=== PATIENT | female | born 1955 | race Caucasian/White ===

== ENCOUNTER 2023-06-10 07:00 | Day surgery (SDC) | payer OTHER, SELFPAY ==
--- NOTE | 2023-06-05 11:38 | HPS.HSE ---
Family Physician
-
Family Physician: INTERVIEWE UNKNOWN - PT NOT
Chief Complaint
-
Chronic atrial fibrillation. Atypical atrial flutter.
History of Present Illness
The patient is a 68 year old female presenting today for chronic atrial fibrillation and atypical atrial flutter. The patient is accompanied by her son, Georgette, due to her primary language being [place]. Should this language not be available per
station repairer services, her son states the Namibian or Tunisian would be preferred. The patient notes persistent dyspnea on exertion and intermittent palpitations over the last 2 years which are likely in part due to her atrial arrhythmias. She
previously underwent a failed cardioversion in 2019. She is on current pharmacological therapy with Diltiazem and Metoprolol Tartrate. She is compliant with Eliquis for oral anticoagulation. She notes that her current symptoms greatly interfere with
her activities of daily living and overall impact her quality of life. She is interested in pursuing pulmonary vein isolation and atrial flutter ablation for further arrhythmia management. Of note, the patient did undergo a medial sternotomy and
atrial septal repair in 1992 in [facility]. Given the paucity of medical records from her remote atrial septal defect repair, she will undergo a pre-procedural transesophageal echocardiogram first to comprehensively assess her anatomy. She denies any
current complaints today such as chest pain, shortness of breath at rest, palpitations, nausea, vomiting, diarrhea, lightheadedness, dizziness, sore throat, or fever.
Medical History
Past Medical History
Past Medical History: Reports Other
Additional Past Medical History:
1. Chronic atrial fibrillation and atypical atrial flutter, status post cardioversion 2018; pharmacological therapy with Diltiazem and Metoprolol Succinate, oral anticoagulation with Eliquis.
2. Hypertension.
3. Hyperlipidemia.
4. Coronary artery disease, status post PCI with stent 2018.
5. Atrial septal defect, status post medial sternotomy and atrial septal defect repair 1992.
6. Congestive heart failure, preserved ejection fraction.
7. Pericardial effusion without evidence of hemodynamic compromise on echocardiogram 11/2022.
8. Venous varicosities.
9. Osteoarthritis.
10. Mild leukocytosis and elevated blood glucose, likely secondary to recent corticosteroids.
11. Obesity, BMI 31.7.
Past Surgical History: Reports Other
Additional Past Surgical History:
1. PCI with stent and cardioversion.
2. Medial sternotomy and atrial septal defect repair.
Social History
Tobacco: Non-smoker
Alcohol: None
Living: Other (She lives with her son in his 3 story home. )
Family History
Family History: Not pertinent
Allergies / Home Medications
Allergy/Medication List:
Home medications:
1. Apixaban 5 mg p.o. twice a day.
2. Diltiazem 240 mg p.o. daily.
3. Furosemide 20 mg p.o. daily.
4. Lisinopril 10 mg p.o. daily.
5. Metoprolol Tartrate 25 mg p.o. twice a day.
6. Rosuvastatin 40 mg p.o. daily.
7. Aldactone 25 mg p.o. daily.
Allergies: No known allergies.
Review of Systems
-
A 12 point ROS was completed and negative except as noted: Yes
Physical Exam
Vital Signs
Blood pressure 115/73. Heart rate 77. Respirations 18. Pulse ox 98% on room air.
Height 5 feet, 3 inches. Weight 81.3 kg. BMI 31.7.
Physical Exam
General: Well Developed, Well Nourished and No Apparent Distress
HEENT: NormoCephalic, Moist mucous membranes, Atraumatic and PERRLA
Respiratory: Clear
Cardiac: Irregular Rhythm
GI: Soft, Non Tender and Non Distended
Musculoskeletal: Normal Gait & Station
Skin: Warm and Dry
Neuro: AO x 3 and Nonfocal/grossly intact
Laboratory Results
-
DIAGNOSTIC STUDIES as of 06/05/2023: White blood cell count 13.1. Hemoglobin 12.3. Platelet count 323,000. PT 13.9. INR 1.07. Sodium 136. Potassium 4.4. BUN 14. Creatinine 0.7. Glucose 227. Calcium 9.6. Magnesium 2.1. AST 19. ALT 17. Albumin 4.4.
Type and screen O positive.
EKG 06/05/2023: Atrial flutter with variable AV block and premature ventricular or aberrantly conducted complexes. Lateral infarct, age undetermined.
Chest CT 06/05/2023: Normal, conventional pulmonary venous anatomy is demonstrated on the right. No evidence of left atrial filling defect/thrombus identified.
Echocardiogram 12/03/2022: The estimated ejection fraction is 60-65%. Small cell growth. Showed pericardial effusion, without evidence of hemodynamic compromise. Mild biatrial enlargement. Normal LV and RV size and function. Mild to moderate mitral
regurgitation with eccentric posteriorly directed jet. History of ASD repair in the past. Based on the color Doppler there is no evidence of interatrial communication.
Impression/Plan
-
IMPRESSION/PLAN:
1. Chronic atrial fibrillation and atypical atrial flutter: The patient would like to pursue pulmonary vein isolation and an atrial flutter ablation for further arrhythmia management. Prior to getting this done, she will undergo a transesophageal
echocardiogram with Dr. Moshe Kauffman on 06/10/2023. The benefits and risks of the procedure have been explained to the patient. The patient understands these risks and wishes to proceed.
2. New-onset cough: The patient's son reported a recent onset of a non-productive cough for this patient. Per her son, her cough very well could be allergy related. She denied any fever and any other associated symptoms. No coughing was noted per
this practitioner during the patient's pre-operative evaluation. She was advised to monitor her symptoms at home prior to her procedure. She was also advised to COVID test herself and call her surgeon's office should she test positive. Adequate
hydration, rest, and cough suppressants, such as cough drops, were suggested. Of note, her chest CT demonstrated no lung abnormalities.
== END 2023-06-10 09:45 | disposition home or self-care (01) ==
LOC: CATH 07:00
PROVIDERS: ATTENDING PHYSICIAN Internal Medicine Cardiovascular Disease
DX: I48.20 Chronic atrial fibrillation, unspecified (principal); I48.4 Atypical atrial flutter; I08.1 Rheumatic disorders of both mitral and tricuspid valves; R06.09 Other forms of dyspnea; I11.0 Hypertensive heart disease with heart failure; I50.9 Heart failure, unspecified; E78.5 Hyperlipidemia, unspecified; I25.10 Atherosclerotic heart disease of native coronary artery without angina pectoris; Z95.5 Presence of coronary angioplasty implant and graft; E66.9 Obesity, unspecified; Z68.31 Body mass index [BMI] 31.0-31.9, adult; Z79.01 Long term (current) use of anticoagulants
CPT/HCPCS: 93312; 93320; 93325

== ENCOUNTER 2023-06-12 05:59 | Day surgery (SDC) | payer OTHER, SELFPAY ==
[2023-06-05 12:46] VITALS: BMI 31.8
[2023-06-05 13:24] LABS: % Basophils 0.2 % (0-2); % Immature Granulocytes 0.6 % (0-0.5); % Lymphocytes 13.3 % (20.5-51.1); % Monocytes 6.3 % (1.7-9.3); % Neutrophils 79.6 % (42.2-75.2); Absolute Immature Granulocytes 0.1 10^3/uL (0-0.05); Absolute Lymphocytes 1.8 10^3/uL (1.2-3.4); Absolute Monocytes 0.8 10^3/uL (0.1-0.6); Absolute Neutrophils 10.6 10^3/uL (1.4-6.5); Hematocrit 37.2 % (37.0-47.0); Hemoglobin 12.3 g/dL (12.0-16.0); Mean Corp Hgb Conc. 33.1 g/dL (33.0-37.0); Mean Corpuscular Hgb 29.9 pg (27.0-31.0); Mean Corpuscular Volume 90.5 fL (81.0-99.0); Nucleated Red Blood Cells % 0 %; Platelet Count 323 10^3/uL (130-400); Red Blood Cell Count 4.11 10^6/uL (4.20-5.40); Red Cell Dist. Width 12.7 % (11.5-14.5); White Blood Cell Count 13.3 10^3/uL (4.8-10.8)
[2023-06-05 13:35] LABS: ALT (SGPT) 17 U/L (0-35); AST (SGOT) 19 U/L (14-36); Albumin 4.4 g/dl (3.5-5.0); Alkaline Phosphatase 113 U/L (38-126); Blood Urea Nitrogen 14 mg/dl (7-17); Calcium 9.6 mg/dl (8.4-10.2); Carbon Dioxide 25 mmol/L (22-30); Chloride 101 mmol/L (98-107); Estimated Creatinine Clearance 78 ml/min; Glucose 227 mg/dl (70-99); Magnesium 2.1 mg/dl (1.6-2.3); Potassium 4.4 mmol/L (3.5-5.1); Sodium 136 mmol/L (135-145); Total Bilirubin 0.5 mg/dl (0.2-1.3); Total Protein 7.3 g/dl (6.3-8.2); eGFR > 60.00
[2023-06-05 13:43] LABS: INR 1.07; PT 13.9 Sec (11.4-14.6)
[2023-06-05 13:44] LABS: APTT 28.1 Sec (23.4-35.0)
--- NOTE | 2023-06-06 07:26 | HPS.HSE ---
Family Physician
-
Family Physician: Gilles Lock
Chief Complaint
-
Chronic atrial fibrillation. Atypical atrial flutter.
History of Present Illness
The patient is a 68 year old female presenting today for chronic atrial fibrillation and atypical atrial flutter. The patient is accompanied by her son, Georgette, due to her primary language being [place]. Should this language not be available per
painter hand services, her son states the [place] or [place]divian would be preferred. The patient notes persistent dyspnea on exertion and intermittent palpitations over the last 2 years which are likely in part due to her atrial arrhythmias. She
previously underwent a failed cardioversion in 2019. She is on current pharmacological therapy with Diltiazem and Metoprolol Tartrate. She is compliant with Eliquis for oral anticoagulation. She notes that her current symptoms greatly interfere with
her activities of daily living and overall impact her quality of life. She is interested in pursuing pulmonary vein isolation and atrial flutter ablation for further arrhythmia management. She denies any current complaints today such as chest pain,
shortness of breath at rest, palpitations, nausea, vomiting, diarrhea, lightheadedness, dizziness, sore throat, or fever.
Medical History
Past Medical History
Past Medical History: Reports Other
Additional Past Medical History:
1. Chronic atrial fibrillation and atypical atrial flutter, status post cardioversion 2018; pharmacological therapy with Diltiazem and Metoprolol Succinate, oral anticoagulation with Eliquis.
2. Hypertension.
3. Hyperlipidemia.
4. Coronary artery disease, status post PCI with stent 2018.
5. Atrial septal defect, status post medial sternotomy and atrial septal defect repair 1992.
6. Congestive heart failure, preserved ejection fraction.
7. Pericardial effusion without evidence of hemodynamic compromise on echocardiogram 11/2022.
8. Venous varicosities.
9. Osteoarthritis.
10. Mild leukocytosis and elevated blood glucose, likely secondary to recent corticosteroids.
11. Obesity, BMI 31.7.
Past Surgical History: Reports Other
Additional Past Surgical History:
1. PCI with stent and cardioversion.
2. Medial sternotomy and atrial septal defect repair.
Social History
Tobacco: Non-smoker
Alcohol: None
Living: Other (She lives with her son in his 3 story home. )
Family History
Family History: Not pertinent
Allergies / Home Medications
Allergy/Medication List:
Home medications:
1. Apixaban 5 mg p.o. twice a day.
2. Diltiazem 240 mg p.o. daily.
3. Furosemide 20 mg p.o. daily.
4. Lisinopril 10 mg p.o. daily.
5. Metoprolol Tartrate 25 mg p.o. twice a day.
6. Rosuvastatin 40 mg p.o. daily.
7. Aldactone 25 mg p.o. daily.
Allergies: No known allergies.
Review of Systems
-
A 12 point ROS was completed and negative except as noted: Yes
Physical Exam
Vital Signs
Blood pressure 115/73. Heart rate 77. Respirations 18. Pulse ox 98% on room air.
Height 5 feet, 3 inches. Weight 81.3 kg. BMI 31.7.
Physical Exam
General: Well Developed, Well Nourished and No Apparent Distress
HEENT: NormoCephalic, Moist mucous membranes, Atraumatic and PERRLA
Respiratory: Clear
Cardiac: Irregular Rhythm
GI: Soft, Non Tender, Non Distended and Other (Obese. )
Musculoskeletal: Normal Gait & Station
Skin: Warm and Dry
Neuro: AO x 3 and Nonfocal/grossly intact
Laboratory Results
-
06/05/23 12:33
06/05/23 12:33
Laboratory Results
PT 13.9 Sec (11.4-14.6) 06/05/23 12:33
INR 1.07 06/05/23 12:33
APTT 28.1 Sec (23.4-35.0) 06/05/23 12:33
Total Bilirubin 0.5 mg/dl (0.2-1.3) 06/05/23 12:33
AST 19 U/L (14-36) 06/05/23 12:33
ALT 17 U/L (0-35) 06/05/23 12:33
Alkaline Phosphatase 113 U/L (38-126) 06/05/23 12:33
EKG 06/05/2023: Atrial flutter with variable AV block and premature ventricular or aberrantly conducted complexes. Lateral infarct, age undetermined.
Chest CT 06/05/2023: Normal, conventional pulmonary venous anatomy is demonstrated on the right. No evidence of left atrial filling defect/thrombus identified.
Echocardiogram 12/03/2022: The estimated ejection fraction is 60-65%. Small cell growth. Showed pericardial effusion, without evidence of hemodynamic compromise. Mild biatrial enlargement. Normal LV and RV size and function. Mild to moderate mitral
regurgitation with eccentric posteriorly directed jet. History of ASD repair in the past. Based on the color Doppler there is no evidence of interatrial communication.
Impression/Plan
-
IMPRESSION/PLAN:
1. Chronic atrial fibrillation and atypical atrial flutter: The patient would like to pursue pulmonary vein isolation and an atrial flutter ablation for further arrhythmia management. She is scheduled for this procedure on 06/12/[address] Garcia
Shreyas. Prior to getting this done, she will undergo a transesophageal echocardiogram on 06/10/2023 to assess her anatomy. The benefits and risks of both procedures have been explained to the patient. The patient understands these risks and wishes
to proceed.
2. New-onset cough: The patient's son reported a recent onset of a non-productive cough for this patient. Per her son, her cough very well could be allergy related. She denied any fever and any other associated symptoms. No coughing was noted per
this practitioner during the patient's pre-operative evaluation. She was advised to monitor her symptoms at home prior to her procedure. She was also advised to COVID test herself and call her surgeon's office should she test positive. Adequate
hydration, rest, and cough suppressants, such as cough drops, were suggested. Of note, her chest CT demonstrated no lung abnormalities.
[2023-06-12] VITALS (10 sets, daily range): BP systolic 122–149; BP diastolic 58–95; BMI 31.7
[2023-06-12 08:58] LABS: ACT-LR - POC 244 Seconds (116-155)
[2023-06-12 09:22] LABS: ACT-LR - POC 292 Seconds (116-155)
[2023-06-12 09:40] LABS: ACT-LR - POC 313 Seconds (116-155)
[2023-06-12 10:00] LABS: ACT-LR - POC 303 Seconds (116-155)
--- NOTE | 2023-06-12 10:50 | ITS.CL.ABL ---
[employer] - Ablation
Ablation
Procedure Report:
ELECTROPHYSIOLOGY ABLATION STUDY
DATE:: June 12, 2023 REFERRING: Dr. Minh Davenport
INDICATION: Persistent supraventricular tachycardia in the form of atypical atrial flutter
HISTORY: See H and P. As above
ANTIARRHYTHMIC DRUG: Toprol and diltiazem
PRE-PROCEDURE DOTTIE: No atrial thrombus
PRESENTING RHYTHM: Micra reentry from the superior anterior left atrium above the prior ASD patch approximately 1 cm anteroseptal to the antrum of the right superior pulmonary vein involving this region and extension slightly towards the center of
the left atrial roof. Cycle length 250 to 60 ms.
'TIME-OUT': called and confirmed.
SEDATION/ANESTHESIA: provided via the anesthesia department using general anesthesia (LMA).
INTRAVENOUS/ARTERIAL ACCESS:
Right femoral venous - 8Fr
Left femoral venous - 8 Fr, 6 Fr
Ultrasound guidance for bilateral femoral vein access was utilized by me to obtain access with demonstration of normal anatomy
CHADS-VASC Score:
HAS-Bled Score
PROCEDURE:
1. A decapolar CS catheter was placed within the CS for mapping and pacing. This was also used as the reference catheter for the 3-D map. The clinical atrial flutter was Microreentry from the left atrium in the anteroseptal left atrium just
outside the right superior pulmonary vein above the prior surgical patch. The entire right atrium was activating passively with 90% of the cycle length in the right atrium with markedly long post pacing interval from the entire right atrium. The
tachycardia appeared to be breaking through the posteroseptal right atrium from the left atrium. Transseptal puncture was somewhat difficult given the prior surgical ASD closure and utilized a steerable 10 Panamanian sheath first then upgraded to the
pulse select sheath. Multipolar mapping of the left atrium demonstrated Microreentry with PPI equal to tachycardia cycle length in the anteroseptal left atrium just outside the right superior pulmonary vein and a focal area. This focal area
extended from the anteroseptal left atrium towards the center of the left atrial roof with the boundary of the circuit was approximately 0.5 to 1 cm. Although we do open not have a prior surgical report the right superior pulmonary vein was
isolated at baseline and there was only small areas of connection at the right inferior pulmonary vein and in the left common ostium. We performed PFA for pulmonary vein isolation and left atrial posterior wall isolation and with PFA delivered to
the anteroseptal left atrium outside the right superior pulm vein all the way back to the transseptal puncture the tachycardia then changed from the initial cycle length of 250 ms to 270 ms and CS activation changed from eccentric to concentric.
This second tachycardia went between 270 ms and 230 ms with the 230 ms tachycardia which we will refer to his tachycardia 3 entraining from the CTI and proximal coronary sinus. Tachycardia 2 at 270 ms which was transition from the clinical
tachycardia was not able to be entrained from either atria with PPI equal to tachycardia cycle length. The patient predominantly was in the second tachycardia to 70 ms, and as such we then cardioverted the patient to sinus rhythm and perform CTI
flutter ablation in sinus rhythm with bidirectional block at 140 ms and this was performed with a 4 mm tactic cath. We also delivered lesions on the right atrial side of the interatrial septum across from the area of clinical tachycardia at 30 W.
The patient had intermittent sinus bradycardia and competing junctional rhythm and the patient was noninducible for further tachyarrhythmia.
2. The intracardiac ultrasound catheter was positioned in the RA to identify the FO for targeting of transseptal puncture, assist in identification of the pulmonary vein ostia, monitoring pre and post ablation pulmonary vein flow velocities,
monitoring for 'bubble' formation during RF application as a sign of thermal injury, and to monitor for pericardial effusion during mapping and ablation procedure. Left atrial size, LV ejection fraction, and pulmonary vein flows were monitored
pre and post ablation procedure. The other valves were inspected and found to be free of significant regurgitation or stenosis.
3. Half of the calculated heparin bolus was administered prior to the first transeptal puncture. Transseptal puncture was performed to diagnose RA and LA pressure so that safety of LA mapping and ablation could be further assessed, and to access
the left atrium and pulmonary veins for mapping and ablation. This entailed advancing an 8 Fr SL-1 sheath with dilator into the superior vena cava and withdrawing both (monitoring intracardiac ultrasound, fluoroscopy and tip pressure) with the tip
oriented toward the atrial septum. The fossa ovalis was engaged (indicated by sudden displacement of the sheath tip as well as tenting of the fossa seen on intracardiac ultrasound). Left atrial access required a pass with the Brockenbrough needle
extended. Left atrial catheter position was confirmed by pressure monitoring (RA mean pressure for mm Hg and LA mean presure 8 mm Hg), LA saturation (99%), as well as fluoroscopy. The sheath was advanced over the dilator and positioned in the
left atrium. This procedure was repeated for the Agilis sheath. The remainder of the calculated heparin bolus was administered and heparin was
infused to maintain ACT at 300 -350 seconds throughout the case.
4. RA pacing was performed via the proximal decapolar poles and LA pacing was performed via the distal decapolar poles.
5. A quadrapolar catheter was first positioned at the His position for His Bundle recording which was tagged via the 3-D Navex sytem, and then passed to the RVA for RV pacing and recording.
6. The ablation catheter was positioned through one of the transeptal seaths and a 20 pole ring mapping catheter was positioned through the second seath into the LA and then the ostia of the LIPV, LSPV, RSPV and the RIPV.
7. Next, a 3-D map was created using Navex. A 3-D reconstructed CT image was compared to the 3-D Navex map to assist in anatomic interpretation, mapping and ablation. The CT image and the NavX image were fused.
8. All 4 pulmonary veins were isolated with pulsed field ablation as above, the left atrial posterior wall was isolated with pulsed field ablation with electrical silence and the left atrial posterior wall. A line from the right superior pulmonary
vein down along the interatrial septum towards the transseptal puncture was performed PFA transitioning the clinical tachycardia to tachycardia 2 and 3. CTI flutter ablation was performed with RF and additional RF lesions were placed across from
the clinical tachycardia site from the right atrial side to hit both sides of the septum at the site of clinical tachycardia which was macro reentry about the anterior superior interatrial septum.
9. As above the patient had sinus bradycardia and competing junctional rhythm at baseline with reasonable conduction down to 520 ms and a normal HV interval.
TOTAL FLOURO TIME: 27.6 minutes
TOTAL RF DURATION: 6 minutes
REVERSAL OF HEPARIN: 40 mg of protamine, slow IV administration
COMPLICATIONS:
None
Intracardiac US shows no pericardial effusion post ablation.
SUMMARY:
Complex left atrial mapping and ablation.
Clinical tachycardia was Micra reentry in the anteroseptal region of the left atrium above and slightly posterior to the prior surgical patch. This was ablated with PFA as well as the pulmonary veins were isolated, the left atrial posterior wall
was isolated, and CTI flutter ablation was performed.
RECOMMENDATIONS:
1. Admit to monitored bed.
2. Resume anticoagulation. [id number] stitch was applied
3. Discontinue Cardizem but will continue Toprol given her cardiomyopathy
4. Continue oral anticoagulation
Copy to: Dr. Minh Davenport
[2023-06-12] MEDS: TYLENOL 650 MG PO (14:10)
--- NOTE | 2023-06-12 15:29 | W.PN.UPDATE ---
Update Note
Progress Note Update
68 yo WF s/p PVI (same day). She feels good, no cp, sob, von diet, voiding, amb w/o dizziness, b/l groins c/d/i no HT, soft, EKG SR 1deg AVB. She will take Eliquis at 5pm at home. She will stop diltiazem and continue metprolol. Activity restrictions
reviewed. She will f/u Dr. Davenport in 2-4 weeks. She is for d/c home after 330pm.
SUMMARY:
Complex left atrial mapping and ablation.
Clinical tachycardia was Micra reentry in the anteroseptal region of the left atrium above and slightly posterior to the prior surgical patch. This was ablated with PFA as well as the pulmonary veins were isolated, the left atrial posterior wall
was isolated, and CTI flutter ablation was performed.
RECOMMENDATIONS:
1. Admit to monitored bed.
2. Resume anticoagulation. [id number] stitch was applied
3. Discontinue Cardizem but will continue Toprol given her cardiomyopathy
4. Continue oral anticoagulation
Copy to: Dr. Minh Davenport
== END 2023-06-12 15:26 | disposition home or self-care (01) ==
LOC: CATH 05:59
PROVIDERS: ATTENDING PHYSICIAN Internal Medicine Cardiovascular Disease; FAMILY PHYSICIAN Family Medicine; OTHER PHYSICIAN Internal Medicine Cardiovascular Disease
DX: I48.20 Chronic atrial fibrillation, unspecified (principal); I48.4 Atypical atrial flutter; R06.09 Other forms of dyspnea; Z79.899 Other long term (current) drug therapy; Z79.01 Long term (current) use of anticoagulants; I11.0 Hypertensive heart disease with heart failure; Z87.74 Personal history of (corrected) congenital malformations of heart and circulatory system; Z95.5 Presence of coronary angioplasty implant and graft; I25.10 Atherosclerotic heart disease of native coronary artery without angina pectoris; E78.5 Hyperlipidemia, unspecified; E66.9 Obesity, unspecified; Z68.31 Body mass index [BMI] 31.0-31.9, adult; M19.90 Unspecified osteoarthritis, unspecified site; I31.39 Other pericardial effusion (noninflammatory); I83.90 Asymptomatic varicose veins of unspecified lower extremity; D72.829 Elevated white blood cell count, unspecified; R73.9 Hyperglycemia, unspecified; I47.10 Supraventricular tachycardia, unspecified; I50.9 Heart failure, unspecified
CPT/HCPCS: C1732; C1894; C1769; C1730; C1766; C2630; C1892; C1759; 36415; 75572; 76937; 80053; 83735; 85025; 85347; 85610; 85730; 86850; 86900; 86901; 93005; 93655; 93656; 93657; Q9967

== ENCOUNTER 2024-01-27 15:20 | Inpatient (IN) | payer OTHER, SELFPAY ==
[2024-01-27] VITALS (10 sets, daily range): BP systolic 103–138; BP diastolic 60–91; BMI 32.8
[2024-01-27 12:05] LABS: % Basophils 1.1 % (0-2); % Eosinophils 2.9 % (0-6); % Immature Granulocytes 0.4 % (0-0.5); % Lymphocytes 32.3 % (20.5-51.1); % Monocytes 10.3 % (1.7-9.3); Absolute Basophils 0.1 10^3/uL (0-0.2); Absolute Eosinophils 0.2 10^3/uL (0-0.7); Absolute Lymphocytes 2.4 10^3/uL (1.2-3.4); Absolute Monocytes 0.8 10^3/uL (0.1-0.6); Absolute Neutrophils 3.9 10^3/uL (1.4-6.5); Hematocrit 39.4 % (37.0-47.0); Mean Corp Hgb Conc. 30.5 g/dL (33.0-37.0); Mean Corpuscular Hgb 28.4 pg (27.0-31.0); Mean Corpuscular Volume 93.1 fL (81.0-99.0); Mean Platelet Volume 8.7 fL (7.4-10.4); Nucleated Red Blood Cells % 0 %; Platelet Count 369 10^3/uL (130-400); Red Blood Cell Count 4.23 10^6/uL (4.20-5.40); Red Cell Dist. Width 14.3 % (11.5-14.5); White Blood Cell Count 7.3 10^3/uL (4.8-10.8)
[2024-01-27 12:21] LABS: ALT (SGPT) 14 U/L (0-35); AST (SGOT) 23 U/L (14-36); Albumin 4.6 g/dl (3.5-5.0); Alkaline Phosphatase 68 U/L (38-126); Blood Urea Nitrogen 12 mg/dl (7-17); Calcium 9.7 mg/dl (8.4-10.2); Carbon Dioxide 23 mmol/L (22-30); Chloride 104 mmol/L (98-107); Glucose 132 mg/dl (70-99); Potassium 4.3 mmol/L (3.5-5.1); Sodium 140 mmol/L (135-145); Total Bilirubin 0.8 mg/dl (0.2-1.3); Total Protein 7.5 g/dl (6.3-8.2); eGFR > 60.00
[2024-01-27] MEDS: CARDIZEM 5 MG IV (12:30)
[2024-01-27] MEDS: CARDIZEM 125 IV ×2 (12:30→22:03)
[2024-01-27 12:31] LABS: NT-proBNP 973 pg/ml; Troponin I < 0.012 ng/ml
--- NOTE | 2024-01-27 14:09 | HPS.HSE ---
Family Physician
-
Family Physician: Gilles Lcok
Chief Complaint
-
feeling weak
elevated HR
History of Present Illness
68 year old with PMH for atrial septal defect, A-fib, coronary artery disease, CHF, pericardial effusion presented to us with palpitation, short of breath, hot flashes for past 7 to 10 days. Patient underwent right knee replacement 3 weeks ago,
since then she has been taking oxycodone every 12 hours for pain. She abruptly stopped taking oxycodone due to the unpleasant side effects of oxycodone. Since then she has been having poor appetite, not sleeping very well, hot flashes, chills and
nauseous all the time. Her metoprolol was increased to twice a day due to elevated heart rate 7 days ago, with no relief in his symptoms. Patient denied any headache, dizziness, syncopal episode. Patient denied any fever, chest pain. Patient
stated burning in her stomach. Denied vomiting or diarrhea. Patient denied dysuria hematuria.
Upon arrival patient was noted in a flutter. Initiated on Cardizem drip. Admitting for further management
Medical History
Past Medical History
Past Medical History: Reports Other
Additional Past Medical History:
Mild mitral regurgitation
Atrial septal defect
Chronic A-fib
Coronary artery disease
Aortic valve sclerosis
Past Surgical History: Reports Other
Additional Past Surgical History:
Open heart surgery
Cardiac stent
Cardioversion
Social History
Tobacco: Non-smoker
Alcohol: None
Drug: None
Living: With Family
Family History
Family History: Not pertinent
Allergies / Home Medications
Allergies reflects when Allergies were last updated in [employer].
Home Medications with original date entered in [employer]
Allergy/Medication List:
Allergies
Allergy/AdvReac Type Severity Reaction Status Date / Time
No Known Allergies Allergy Unverified 06/12/23 06:14
Home Medications
apixaban 5 mg tablet (Eliquis) 5 mg PO DAILY 05/30/23
furosemide 20 mg tablet 20 mg PO DAILY 05/30/23
lisinopril 10 mg tablet 10 mg PO DAILY 05/30/23
rosuvastatin 40 mg tablet 40 mg PO QPM 05/30/23
spironolactone 25 mg tablet (Aldactone) 25 mg PO DAILY 05/30/23
metoprolol tartrate 25 mg tablet 25 mg PO BID #0 tabs 06/12/23
acetaminophen 325 mg tablet 650 mg PO Q4HPRN PRN mild pain 01/27/24
dapagliflozin propanediol 10 mg tablet (Farxiga) 10 mg PO DAILY 01/27/24
diltiazem HCl 240 mg capsule,24 hr,extended release 240 mg PO DAILY 01/27/24
ferrous sulfate 325 mg (65 mg iron) tablet 325 mg PO DAILY 01/27/24
therapeutic multivitamin 1 tab PO DAILY 01/27/24
Review of Systems
-
Constitutional: Reports Fatigue and Chills
EENT: Reports No Symptoms
Respiratory: Reports No Symptoms
Cardiac: Reports Palpitations
Abdomen/GI: Reports Nausea
: Reports No Symptoms
Musculoskeletal: Reports No Symptoms
Skin: Reports No Symptoms
Neurological: Reports No Symptoms
Endocrine: Reports No Symptoms
Hematologic/Lymphatic: Reports No Symptoms
Psych: Reports No Symptoms
Physical Exam
Vital Signs
Vital Signs
Temp Pulse Resp BP Pulse Ox
98.1 F 86 24 113/74 97
01/27/24 11:39 01/27/24 13:15 01/27/24 13:15 01/27/24 12:00 01/27/24 13:15
Physical Exam
General: Well Developed, Well Nourished and No Apparent Distress
HEENT: NormoCephalic, Moist mucous membranes and Atraumatic
Respiratory: Clear
Cardiac: S1/S2 and Regular Rhythm; No Murmur or Rub
GI: Soft, Non Tender, Non Distended and Normal Bowel Sounds; No Organomegaly
Rectal: Deferred by Provider
Musculoskeletal: No Clubbing, No Cyanosis and No Edema
Skin: Rash and Other (right knee incision)
Neuro: AO x 3 and Nonfocal/grossly intact
Psych: Calm
Laboratory Results
-
01/27/24 11:57
01/27/24 11:57
Laboratory Results
Total Bilirubin 0.8 mg/dl (0.2-1.3) 01/27/24 11:57
AST 23 U/L (14-36) 01/27/24 11:57
ALT 14 U/L (0-35) 01/27/24 11:57
Alkaline Phosphatase 68 U/L (38-126) 01/27/24 11:57
Troponin I < 0.012 ng/ml 01/27/24 11:57
Data Reviewed
-
Lab Data: Labs Reviewed by me
Impression/Plan
-
# Rapid atrial flutter
-On Cardizem drip
-Cardiology consulted
-EKG with a flutter with 221 AV conduction, ST and T wave abnormality
-Status post cardioversion in 2019
-eliquis continued
-metoprolol continued
-NPO after MN for possible cardioversion tomorrow
# Coronary artery disease, status post PCI with stent 2018-N
#Atrial septal defect, status post medial sternotomy and atrial septal defect repair 1992
#Congestive heart failure, preserved ejection fraction.
# Pericardial effusion
-Lasix,spironolactone continued
-Farxiga continued
#iron def anemia
-ferrous sulfate continued
#essential htn
-lisinopril continued
#HLD
-statin
#recent right knee replacement
#DVT prophylaxis
-eliquis
#CODE status
-full code
--- NOTE | 2024-01-27 15:30 | W.PN.UPDATE ---
Update Note
Progress Note Update
This is an addendum to the H&P written by Bridgette Oshea on 01/27/2024. Patient seen and examined independently with RECEPTIONIST NURSE
68-year-old female past medical history of atrial fibrillation/flutter status post cardioversion 2018, CAD status post stenting 2019, atrial septal defect status post medial sternotomy and atrial septal defect repair 923, HFpEF,, iron deficiency
anemia, hypertension, hyperlipidemia, presenting for insomnia, chills, nausea and found to be in atrial fibrillation with RVR with heart rate up to 124. Symptoms started after she stopped taking oxycodone for her right knee surgery 3 weeks ago.
Labs unremarkable. Chest x-ray shows cardiomegaly.
Cardizem drip started. Cardiology consulted. N.p.o. past midnight for potential cardioversion tomorrow.
[2024-01-27 15:45] LABS: TSH Reflex To Free T4 2.91 uIU/ml (0.47-4.68)
--- NOTE | 2024-01-27 15:48 | CON.CAR ---
Addendum entered and electronically signed by Devendra Mathew MD 01/27/24 17:05:
I saw and examined the patient.
The Application Engineer's note was reviewed and I agree with the note.
Comment: Briefly, 60-year-old woman past medical history of atrial fibrillation/flutter with prior ablation who presents in atrial flutter with rapid ventricular response
There was consideration for direct-current cardioversion in the ER however she unfortunately has not been reliably anticoagulated over the last several weeks
For now continue Dilt drip for heart rate goal less than 110 bpm
Continue Eliquis for cardioembolic prophylaxis of A-fib, patient should be discharged on twice daily dosing, was previously taking once daily
Tentative plan for DOTTIE/direct-current cardioversion if she remains in rapid atrial flutter
Discussed with patient's son who is at bedside
Rest per Amanda Ochoa
Addendum entered and electronically signed by Amanda Ochoa PA-C 01/27/24 16:21:
denies recent bleeding issues related to knee replacement. hgb stable at 12.
Original Note:
Consultation
Consultation Request
Date/Time Consultation Performed: 01/27/24
Requesting Provider: Bridgette WATKINS
Performing Provider: Amanda Ochoa PA-C for Dr. Mathew
Reason for Consultation: aflutter
Medical History
-
Chief Complaint: aflutter
History of Present Illness:
Patient is a 68-year-old female with past medical history of CAD status post PCI in 2019 in [facility], further details unknown, history of atrial fibrillation status post PFA, PVI, and CTI flutter ablation 06/12/23, chronic anticoagulation with
Eliquis, atrial septal defect status post repair through open heart surgery and medial sternal sternotomy in 1992 in [facility], details unknown, hypertension, hyperlipidemia, status post R knee replacement 01/05/2024 at [facility], Dr. Vieyra
who was seen as an urgent visit by Dr. Davenport today due to palpitations and shortness of breath as well as recent insomnia over the last several days. She was noted to be in rapid a flutter by EKG and was referred to [facility]. Reportedly
patient did miss several doses of Eliquis for her knee replacement approximately 3 weeks ago, and also states she was advised by Dr. Davenport to decrease her Eliquis dosing from twice daily to once daily due to bruising of her upper extremities. She
and family at bedside are upset she cannot get a cardioversion in the ER and be discharged. Currently HRs in 110s on IV cardizem gtt @10. Also complained of some nausea, and states she has been taking oxycodone for pain, but recently stopped this.
She speaks some Slovak, however patient's son translates for her at times.
PMH:
Persistent atrial fibrillation
Status post PFA, PVI and CTI flutter ablation 06/12/2023
Chronic anticoagulation with Eliquis
history of R knee replacement 01/05/24 at [facility], Dr. Vieyra
History of CAD status post PCI in 2019 in [facility], further details unknown
atrial septal defect status post repair through open heart surgery and medial sternal sternotomy in 1992 in [facility], details unknown
HTN
HLD
Past Medical History
Past Medical History: Other (in HPI)
Social History
Tobacco: Non-Smoker
Alcohol: None
Living: With Family
Family History
Family History: Early CAD (brother) and CAD (mother)
Allergies / Home Medications
Allergy/AdvReac Type Severity Reaction Status Date / Time
No Known Allergies Allergy Unverified 06/12/23 06:14
�Medication �Instructions �Recorded �Confirmed �Type
apixaban 5 mg tablet (Eliquis) 5 mg PO DAILY 05/30/23 01/27/24 History
furosemide 20 mg tablet 20 mg PO DAILY 05/30/23 01/27/24 History
lisinopril 10 mg tablet 10 mg PO DAILY 05/30/23 01/27/24 History
rosuvastatin 40 mg tablet 40 mg PO QPM 05/30/23 01/27/24 History
spironolactone 25 mg tablet 25 mg PO DAILY 05/30/23 01/27/24 History
(Aldactone)
metoprolol tartrate 25 mg tablet 25 mg PO BID #0 tabs 06/12/23 01/27/24 Rx
acetaminophen 325 mg tablet 650 mg PO Q4HPRN PRN mild pain 01/27/24 01/27/24 History
dapagliflozin propanediol 10 mg 10 mg PO DAILY 01/27/24 01/27/24 History
tablet (Farxiga)
diltiazem HCl 240 mg capsule,24 240 mg PO DAILY 01/27/24 01/27/24 History
hr,extended release
ferrous sulfate 325 mg (65 mg 325 mg PO DAILY 01/27/24 01/27/24 History
iron) tablet
therapeutic multivitamin 1 tab PO DAILY 01/27/24 01/27/24 History
Review of Systems
-
Unable to obtain full review of systems at this time due to: Language Barrier
History Source: Patient and Family
All other systems: Negative unless noted
Physical Exam
Vital Signs
Temp Pulse Resp BP Pulse Ox
98.1 F 79 29 123/70 100
01/27/24 11:39 01/27/24 15:00 01/27/24 15:00 01/27/24 15:00 01/27/24 15:00
Lab Results
01/27/24 11:57
01/27/24 11:57
Troponin I < 0.012 ng/ml 01/27/24 11:57
Yai-V-Otzpyxamuct Pept 973 pg/ml 01/27/24 11:57
Physical Exam
General: No Apparent Distress and Comfortable
HEENT: Normocephalic, Anicteric and Moist Mucous Membranes
Respiratory: Clear and Non Labored Respirations
Cardiac: S1/S2 and Irregular Rhythm
GI: Soft, Non Tender, Non Distended and Normal Bowel Sounds
Musculoskeletal: No Clubbing, No Cyanosis and Edema (trace - 1+ edema of RLE. R knee incision well healing)
Skin: Warm and Dry
Neuro: AO x 3
Impression / Plan
-
Primary Sightseeing Guide: Dr. Davenport
Primary EP: Dr. Pritchett
Assessment:
Presentation with palpitations, SOB
Atypical atrial flutter with RVR
Nausea
Insomnia
Anxiety
Persistent atrial fibrillation status post PFA, PVI and CTI flutter ablation 06/12/2023
Chronic anticoagulation with Eliquis, however on suboptimal dosing as OP (was taking once daily due to bruising)
history of R knee replacement 01/05/24 at [facility], Dr. Vieyra
Suspected history of heart failure with improved EF based on med list
History of CAD status post PCI in 2019 in [facility], further details unknown
atrial septal defect status post repair through open heart surgery and medial sternal sternotomy in 1992 in [facility], details unknown
HTN
HLD
DOTTIE 06/10/23: EF 50 to 55%, mild MR, mild TR, small pericardial effusion without evidence of hemodynamic compromise, status post surgical ASD closure with no residual shunt
Plan:
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 She had PFA/PVI/CTI flutter ablation 06/12/2023.
-Placed on IV Cardizem gtt., recently uptitrated to 10 and remains with heart rates in the 110s.
-Major complaint at present remains insomnia, nausea status post dose of Zofran, and anxiety. Defer treatment to primary service
-She was hoping to be cardioverted in ER, however is on suboptimal dosing of Eliquis as an outpatient due to bruising and also missed several days of anticoagulation due to recent knee replacement on 01/05/2024
-Will make n.p.o. after midnight for DOTTIE cardioversion in a.m. discussed with patient and son at bedside that if she is noted to have a clot by DOTTIE, will not proceed with cardioversion and will need to be rate controlled
-As outpatient is on diltiazem 240 mg daily and Lopressor 12.5 mg twice daily. continue po BB as BP tolerates, hold OP cardizem for now as on IV
-Discussed importance of compliance with Eliquis 5 mg twice daily moving forward
-DOTTIE from earlier this year with results as above
-Check TSH
-Continue outpatient Lasix, Farxiga, aldactone, lisinopril. CXR with cardiomegaly however no evidence of acute decompensation of CHF.
-Continue postop care of right knee including pain management, PT/OT
-would consider OP EP evaluation. may consider AAD therapy if were to recur with arrhythmia
-d/w hospitalist CAN TECHNICIAN
Data Reviewed
-
EKG: Tracing Personally Visualized and interpreted
Radiology: Report Reviewed by me
Medical Tests (Nuc Med, Echo etc): Report Reviewed by me
Labs: Labs Reviewed by me
Old Records: Reviewed
[2024-01-27] MEDS: TYLENOL 650 MG PO ×2 (17:35→22:04)
[2024-01-27] MEDS: CRESTOR 40 MG PO (17:35)
[2024-01-27] MEDS: ELIQUIS 5 MG PO (19:59)
[2024-01-27] MEDS: LOPRESSOR 25 MG PO (19:59)
[2024-01-27] MEDS: BENADRYL ELIXIR 12.5 MG PO (22:05)
[2024-01-27 22:21] LABS: Glucose - Point of Care 123 mg/dl (70-99)
[2024-01-28] VITALS (10 sets, daily range): BP systolic 104–123; BP diastolic 63–95; PULSE 99–123; BMI 30.1
--- NOTE | 2024-01-28 03:54 | PTCARENOTE ---
Received patient at change of shift. Language line available on floor. Afib on the monitor, HR in the 80s. PRN Benadryl requested by pt for insomnia and administered as per MAY. Pt complains of 7/10 pain in R knee, PRN Tylenol administered as per
MAY. Saman running as per protocol. Call yañez within reach.
[2024-01-28 04:47] LABS: Hematocrit 36.3 % (37.0-47.0); Hemoglobin 11.2 g/dL (12.0-16.0); Mean Corp Hgb Conc. 30.9 g/dL (33.0-37.0); Mean Platelet Volume 8.8 fL (7.4-10.4); Platelet Count 336 10^3/uL (130-400); Red Blood Cell Count 3.86 10^6/uL (4.20-5.40); Red Cell Dist. Width 14.2 % (11.5-14.5); White Blood Cell Count 6.1 10^3/uL (4.8-10.8)
[2024-01-28 05:11] LABS: Blood Urea Nitrogen 10 mg/dl (7-17); Calcium 9.3 mg/dl (8.4-10.2); Carbon Dioxide 21 mmol/L (22-30); Chloride 108 mmol/L (98-107); Estimated Creatinine Clearance 89 ml/min; Glucose 120 mg/dl (70-99); Potassium 4.4 mmol/L (3.5-5.1); Sodium 140 mmol/L (135-145); eGFR > 60.00
[2024-01-28 05:49] LABS: TSH 2.67 uIU/ml (0.47-4.68)
--- NOTE | 2024-01-28 07:42 | W.PN.HOSP.TC ---
Today's Communication/Plan
-
DOTTIE with thrombus
No cardioversion at this time, continue rate control but with increased dose of Cardizem
Assessment / Plan
Assessment / Plan
Physical Exam
General: Well Developed, Well Nourished and No Apparent Distress
HEENT: Normocephalic, Moist mucous membranes and Atraumatic
Respiratory: Clear
Cardiac: S1/S2 and Regular Rhythm; No Murmur or Rub
GI: Soft, Non Tender, Non Distended and Normal Bowel Sounds; No Organomegaly
Rectal: Deferred by Provider
Musculoskeletal: No Clubbing, No Cyanosis and No Edema
Skin: Rash and Other (right knee incision)
Neuro: AO x 3 and Nonfocal/grossly intact
Psych: Calm
Assessment/Plan
68-year-old female with past medical history of atrial fibrillation/flutter status post cardioversion 2018, CAD status post stenting 2019, atrial septal defect status post medial sternotomy and atrial septal defect repair 923, HFpEF, iron deficiency
anemia, hypertension, hyperlipidemia, presenting for insomnia, chills, nausea and found to be in atrial flutter with RVR with heart rate up to 124. Symptoms started after she stopped taking oxycodone for her right knee surgery 3 weeks prior to
presentation. On admission, labs were unremarkable and chest x-ray showed cardiomegaly. Cardizem drip started. Cardiology consulted. There was consideration for cardioversion in the emergency room, however she unfortunately had not been reliably
anticoagulated over the previous several weeks.
#Presentation with Palpitations and Shortness of Breath
#Atypical atrial flutter with rapid ventricular response
#History of PFA/PVI/CTI flutter ablation 06/12/2023
#Left Atrial Appendage Thrombus on DOTTIE study 01/28/24
-On Cardizem drip
-Patient was hoping to be cardioverted in ER, but was noted to be on suboptimal dosing of Eliquis as an outpatient due to bruising and also missed several days of anticoagulation due to recent knee replacement on 01/05/2024
-Cardiology consulted, appreciate their evaluation and recommendations
-Patient as an outpatient is on diltiazem 240 mg daily and Lopressor 12.5 mg twice daily -- continue Lopressor
-Continue Eliquis - patient should be discharged on twice daily dosing, was previously taking once daily
-Checked TSH
-Given patient was found to have a left atrial appendage thrombus, no cardioversion for now, continue with rate control with increase dose of Diltiazem (360 mg daily)
-Plan for repeat DOTTIE in 4 to 6 weeks and would plan to admit patient for dofetilide therapy and potential cardioversion if patient's DOTTIE shows no left atrial appendage thrombus vs. ablation in a few weeks
# Coronary artery disease, status post PCI with stent 2019-N (History of CAD status post PCI in 2019 in [facility], further details unknown)
#Atrial septal defect, status post medial sternotomy and atrial septal defect repair 1992
#Congestive heart failure, preserved ejection fraction.
# Pericardial effusion
-Continue outpatient Lasix, Farxiga, aldactone, lisinopril
#History of Diabetes Mellitus
-Consulted Diabetes ROSS FURNACE OPERATOR
#iron def anemia
-ferrous sulfate continued
#essential htn
-lisinopril continued
#HLD
-statin
#recent right knee replacement on 01/05/24 at [facility], Dr. Vieyra
#Insomnia, nausea and anxiety
#Atrial septal defect status post repair through open heart surgery and medial sternal sternotomy in 1992 in [facility], details unknown
#DVT prophylaxis
-eliquis
#CODE status
-full code
Anticipated Discharge: Within 24 hours
Subjective/Interval History
-
Date of Service: January 28, 2024
Patient was seen and examined. She denied chest pain or shortness of breath.
Objective Data
-
Labs:
Laboratory Results
01/28/24
04:07
WBC 6.1
Hgb 11.2 L
Hct 36.3 L
Plt Count 336
Sodium 140
Potassium 4.4
Chloride 108 H
Carbon Dioxide 21 L
BUN 10
Creatinine 0.6
Glucose 120 H
Calcium 9.3
Vital Signs:
Vital Signs
Temp Pulse Resp BP Pulse Ox
98.1 F 78 16 104/63 96
01/28/24 04:00 01/28/24 06:30 01/28/24 04:00 01/28/24 04:01 01/28/24 04:00
[2024-01-28 09:11] LABS: Glucose - Point of Care 116 mg/dl (70-99)
[2024-01-28] MEDS: ZESTRIL 10 MG PO (09:11)
[2024-01-28] MEDS: LOPRESSOR 25 MG PO (09:11)
[2024-01-28] MEDS: FARXIGA 10 MG PO (09:11)
[2024-01-28] MEDS: ALDACTONE 25 MG PO (09:11)
[2024-01-28] MEDS: FEOSOL 325 MG PO (09:11)
[2024-01-28] MEDS: ELIQUIS 5 MG PO (09:11)
[2024-01-28] MEDS: LASIX 20 MG PO (09:12)
--- NOTE | 2024-01-28 10:24 | W.PN.CARDCBS ---
Addendum entered and electronically signed by Jose Pritchett MD 01/28/24 11:10:
Patient seen and examined after DOTTIE
Agree with NATY Ochoa's note and assessment
Agree with NATY Ochoa's plan
Unfortunately she has missed some recent doses of oral anticoagulation and prior to performing cardioversion we recommended DOTTIE today. That DOTTIE demonstrated left atrial appendage thrombus and as such cardioversion was abandoned. We had commended
her to rate control and admission had not initiated antiarrhythmic drug therapy. I did have 2 separate phone conversations with her son demonstrating options of antiarrhythmic drug therapy with dofetilide which was my first preference and as a
second option ablation procedure for her atypical atrial flutter. Prior surgical ASD closure.
As such given the left atrial appendage thrombus we will commit to rate control with increased diltiazem and instructions about proper uninterrupted use of 1 coagulation with repeat DOTTIE in 4 to 6 weeks and would plan to admit for dofetilide therapy
and potential cardioversion if her DOTTIE demonstrates no left atrial appendage thrombus. As an alternative if she clears her left atrial appendage we could consider an ablation procedure whether that is after DOTTIE or if dofetilide is inefficacious.
Examination:
She is currently rate controlled
Cor irregularly irregular
Lungs clear to station bilaterally
Abdomen soft nontender positive bowel sounds
No extremity edema
Assessment:
Presentation with palpitations, SOB
Atypical atrial flutter with RVR
Nausea
Insomnia
Anxiety
Persistent atrial fibrillation status post PFA, PVI and CTI flutter ablation 06/12/2023
Chronic anticoagulation with Eliquis, however on suboptimal dosing as OP (was taking once daily due to bruising)
history of R knee replacement 01/05/24 at [facility], Dr. Vieyra
Suspected history of heart failure with improved EF based on med list
History of CAD status post PCI in 2019 in [facility], further details unknown
atrial septal defect status post repair through open heart surgery and medial sternal sternotomy in 1992 in [facility], details unknown
HTN
HLD
DOTTIE 06/10/23: EF 50 to 55%, mild MR, mild TR, small pericardial effusion without evidence of hemodynamic compromise, status post surgical ASD closure with no residual shunt
Plan:
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 She had interatrial septal flutter /PFA/PVI/CTI flutter ablation 06/12/2023.
-she remains in rate controlled atypical aflutter on review of tele and EKG this AM
-Unfortunately her DOTTIE demonstrated LA thrombus and we will commit to rate control strategy with repeat DOTTIE in 4 to 6 weeks and office visit to discuss options of dofetilide therapy versus ablation. I did have 2 conversations with son by phone
discussing these options briefly. We will increase her rate control medications at discharge and again instruct her to take her oral anticoagulation twice daily without interruption prior to next DOTTIE.
-As outpatient is on diltiazem 240 mg daily and Lopressor 12.5 mg twice daily. continue po BB as BP tolerates.
-she is felt to have limited repeat ablation options. would consider for AAD/tikosyn load post DOTTIE/CV if patient agreeable
-DOTTIE from earlier this year with results as above
-TSH WNL
-Continue outpatient Lasix, Farxiga, aldactone, lisinopril. CXR with cardiomegaly however no evidence of acute decompensation of CHF.
-Continue postop care of right knee including pain management, PT/OT
-d/w nursing
Original Note:
Today's Communication / Plan
-
for DOTTIE/CV today
likely for tikosyn loading post procedure
eliquis 5mg BID
Impression / Plan
-
Primary Soldering Machine Operator Helper: Dr. Davenport
Primary EP: Dr. Pritchett
Assessment:
Presentation with palpitations, SOB
Atypical atrial flutter with RVR
Nausea
Insomnia
Anxiety
Persistent atrial fibrillation status post PFA, PVI and CTI flutter ablation 06/12/2023
Chronic anticoagulation with Eliquis, however on suboptimal dosing as OP (was taking once daily due to bruising)
history of R knee replacement 01/05/24 at [facility], Dr. Vieyra
Suspected history of heart failure with improved EF based on med list
History of CAD status post PCI in 2019 in [facility], further details unknown
atrial septal defect status post repair through open heart surgery and medial sternal sternotomy in 1992 in [facility], details unknown
HTN
HLD
DOTTIE 06/10/23: EF 50 to 55%, mild MR, mild TR, small pericardial effusion without evidence of hemodynamic compromise, status post surgical ASD closure with no residual shunt
Plan:
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 She had PFA/PVI/CTI flutter ablation 06/12/2023.
-she remains in rate controlled aflutter on review of tele and EKG this AM
-NPO for DOTTIE/CV today
-she had only been taking eliquis once daily prior to admission due to significant bruising on BID dosing and had missed several days due to knee replacement 01/05/24. discussed necessary to take eliquis 5mg BID moving forward.
-As outpatient is on diltiazem 240 mg daily and Lopressor 12.5 mg twice daily. continue po BB as BP tolerates.
-she is felt to have limited repeat ablation options. would consider for AAD/tikosyn load post DOTTIE/CV if patient agreeable
-DOTTIE from earlier this year with results as above
-TSH WNL
-Continue outpatient Lasix, Farxiga, aldactone, lisinopril. CXR with cardiomegaly however no evidence of acute decompensation of CHF.
-Continue postop care of right knee including pain management, PT/OT
-d/w nursing
Progress Note - Soldering Machine Operator Helper
Subjective
Date of Service: January 28, 2024
no cardiac issues overnight. for DOTTIE/CV today
Objective
Labs:
01/28/24 04:07
01/28/24 04:07
Labs
Hgb 11.2 g/dL (12.0-16.0) L 01/28/24 04:07
Hct 36.3 % (37.0-47.0) L 01/28/24 04:07
Plt Count 336 10^3/uL (130-400) 01/28/24 04:07
Sodium 140 mmol/L (135-145) 01/28/24 04:07
Potassium 4.4 mmol/L (3.5-5.1) 01/28/24 04:07
BUN 10 mg/dl (7-17) 01/28/24 04:07
Creatinine 0.6 mg/dL (0.6-1.0) 01/28/24 04:07
Glucose 120 mg/dl (70-99) H 01/28/24 04:07
Troponins
01/27/24
11:57
Troponin I < 0.012
Vital Signs and I&O:
Vital Signs
Temp Pulse Resp BP Pulse Ox
98.2 F 103 18 116/86 99
01/28/24 07:55 01/28/24 09:15 01/28/24 07:55 01/28/24 09:09 01/28/24 09:15
Vital Signs
Temp Pulse Resp BP Pulse Ox
98.2 F 103 18 116/86 99
01/28/24 07:55 01/28/24 09:15 01/28/24 07:55 01/28/24 09:09 01/28/24 09:15
Physical Exam
Physical Exam
GEN: No distress, awake, alert, oriented x3
HEENT: supple, anicteric, mmm, eomi
LUNGS: CTA B/L, no wheezes
CV: Irreg, S1/S2, no murmur
ABD: soft, BS+, NT/ND
EXT: No cyanosis, clubbing. trace edema of RLE
NEURO: Gross non-focal
SKIN: Warm, pink, dry. No rash
--- NOTE | 2024-01-28 11:18 | W.PN.UPDATE ---
Update Note
Progress Note Update
DOTTIE showed FAUZIA clot so CV not performed. plan for rate control of aflutter at present. continue lopressor 25mg BID. will stop IV cardizem and transition to cardizem cd at higher dose of 360mg daily. have arranged for follow up on 02/26 at which time
she will be scheduled for repeat DOTTIE (~6 weeks from today) [facility] for possible DC to home later today vs in AM pending HR control. d/w nursing and CM.
--- NOTE | 2024-01-28 11:28 | PTCARENOTE ---
Pt returned from DOTTIE. Tolerated. VSS.
--- NOTE | 2024-01-28 11:31 | CM ---
Chart reviewed. Patient is independent of ADLS, lives with her son in a [address], patient lives in the basement with a full set up, 0 IMELDA, recent R TKR ambulates with a RW. Patient is not current with VN, patient is currently receiving outpatient
PT. Plan is for the patient to return home when medically stable. CM to follow
[2024-01-28] MEDS: CARDIZEM CD 360 MG PO (12:28)
[2024-01-28 12:29] LABS: Glucose - Point of Care 167 mg/dl (70-99)
--- NOTE | 2024-01-28 15:05 | PN.DE.MGMTRT ---
Insulin Management
- -
01/28/2024 Diabetes Management Consult
Patient admitted 01/26 with weakness and elevated hear rate. PMH atrial septal defect, afib, CAD, CHF, pericardial effusion, s/p knee replacement 3 weeks ago.
Prior to admission patient was taking Farxiga 10 mg daily.
I did not get to see patient as she had been discharged. I did order an A1C this AM which is still pending. If A1C elevated will reach out to patient as outpatient.
Diabetes History
- -
Type of Diabetes: 2
Pre-Admission Diabetes Regimen
01/28/24
04:07
Creatinine 0.6
Insulin Pump Settings
IP Diabetes Regimen
01/27/24 01/28/24 01/28/24
22:19 04:07 09:10
Glucose 120 H
POC Glucose 123 H 116 H
01/28/24
12:28
Glucose
POC Glucose 167 H
Meal type: Breakfast
Patient Education
--- NOTE | 2024-01-28 15:20 | PTCARENOTE ---
IV and tele removed. Discharge instructions reviewed w/ pt and son. Verbalizes understanding. Escorted via wheelchair and staff assist. Discharged to home.
[2024-01-29 14:02] LABS: Glycohemoglobin (HgbA1c) 5.8 % (4.0-5.6)
== END 2024-01-28 15:22 | disposition home or self-care (01) | DRG 309 ==
LOC: IVU 15:20
PROVIDERS: Internal Medicine; Nurse Practitioner; Registered Nurse; ADMITTING PHYSICIAN Hospitalist; ATTENDING PHYSICIAN Hospitalist; EMERGENCY PHYSICIAN Emergency Medicine; FAMILY PHYSICIAN Family Medicine; OTHER PHYSICIAN Internal Medicine Cardiovascular Disease
PROC: B24BZZ4 Ultrasonography of Heart with Aorta, Transesophageal (ICD-10-PCS; 2024-01-28)
DX: I48.19 Other persistent atrial fibrillation (principal); I31.39 Other pericardial effusion (noninflammatory); I50.32 Chronic diastolic (congestive) heart failure; Z79.01 Long term (current) use of anticoagulants; I51.3 Intracardiac thrombosis, not elsewhere classified; Z87.74 Personal history of (corrected) congenital malformations of heart and circulatory system; D50.9 Iron deficiency anemia, unspecified; E78.5 Hyperlipidemia, unspecified; F41.9 Anxiety disorder, unspecified; G47.00 Insomnia, unspecified; Z96.651 Presence of right artificial knee joint; I35.8 Other nonrheumatic aortic valve disorders; I48.4 Atypical atrial flutter; I11.0 Hypertensive heart disease with heart failure; I25.10 Atherosclerotic heart disease of native coronary artery without angina pectoris; Z79.899 Other long term (current) drug therapy; Z82.49 Family history of ischemic heart disease and other diseases of the circulatory system; Z95.5 Presence of coronary angioplasty implant and graft
CPT/HCPCS: 71045; 80048; 80053; 82962; 83036; 83880; 84443; 84484; 85025; 85027; 93005; 93312; 93320; 93325; 96374; 96376; 97116; 97161; 99285